=== PATIENT | male | born 1945 | race Caucasian/White ===

== ENCOUNTER → 2016-11-15 12:37 | Outpatient (CLI) | payer MEDICARE, OTHER ==
[2016-02-16 22:24] VITALS: BMI 23.0
[~2016-11-15 12:37] MED LIST: ADVIL200 MG PO; ARISTOCORT 0.5%15 GM TOPICAL; EZFE 200200 MG PO; MULTIPLE VITAMI1 TA1 PO; PROSCAR5 MG; SYNTHROID88 MCG PO; UROXATRAL10 MG PO; ZOVIRAX800 MG PO
== END | disposition home or self-care (01) ==
LOC: D.RAD 12:37
DX: R13.12 Dysphagia, oropharyngeal phase (principal)

== ENCOUNTER 2017-12-05 05:00 | Day surgery (SDC) | payer MEDICARE, OTHER ==
[2017-12-04 14:07] LABS: BASOPHILS 0.4 % (0-2); EOSINOPHILS 1.2 % (0-7); HEMATOCRIT 38.9 % (42.0-54.0); HEMOGLOBIN 13.1 g/dL (13.5-17.5); IMMATURE GRANULOCYTES 0.2 % (0-5); LYMPHOCYTES 15.3 % (15-50); MCH 31.5 pg (26.0-34.0); MCHC 33.7 g/dL (31.0-37.0); MCV 93.5 fL (80.0-100.0); MEAN PLATELET VOLUME 10.4 fL (7.4-10.4); NEUTROPHILS 73.9 % (40-80); PLATELET COUNT 180 10x3/uL (130-400); RBC 4.16 10x6/uL (4.20-6.10); RDW 12.8 % (11.5-14.5); WBC 8.2 10x3/uL (4.8-10.8)
[2017-12-04 14:21] LABS: INR 1.05 (0.85-1.17); PROTIME 13.3 SECONDS (11.6-15.0)
[2017-12-04 14:22] LABS: APTT 30.6 SECONDS (22.8-39.4)
[~2017-12-05] VITALS: Ht 177.8 cm; Wt 74.8 kg
--- NOTE | ~2017-12-05 | OP ---
PATIENT NAME: ANA ZALDIVAR JR MEDICAL RECORD: [id number] :47 LOCATION:D.OPS ADMISSION DATE: SURGEON: ARLETTE VILLELA DPM DATE OF OPERATION: 12/05/2017 PREOPERATIVE DIAGNOSES: 1. Hallux abductovalgus, right foot. 2. Instability, right first met cuneiform joint. 3. Plantar plate rupture, right second MPJ. 4. PIPJ hammertoe, right second digit. POSTOPERATIVE DIAGNOSES: 1. Hallux abductovalgus, right foot. 2. Instability, right first met cuneiform joint. 3. Plantar plate rupture, right second MPJ. 4. PIPJ hammertoe, right second digit. PROCEDURES NUMBER 1: 1. Edge bunionectomy. 2. First met cuneiform joint fusion. 3. Tu osteotomy, right second metatarsal. 4. Plantar plate repair, right second MPJ. 5. Right second PIPJ fusion. ANESTHESIA: Preoperative popliteal block per the anesthesia department. HEMOSTASIS: Right thigh tourniquet at 350 mmHg. PREOPERATIVE DETAILS: The patient was taken to the OR, placed on the operating table in supine position. This was followed by induction of general anesthesia and infiltration of local anesthetic. The right extremity was then prepped and draped in usual aseptic technique followed by exsanguination of extremity and inflation of tourniquet. PROCEDURE #1: Edge bunionectomy, right foot. A 15 blade was used to create an incision from the dorsal aspect of the medial cuneiform, distally to the base of the proximal phalanx of the hallux. The incision was deepened down through subcutaneous tissue being sure to avoid all vital structures. Dissection was carried down to the first MPJ where an inverted L capsulotomy was performed. The medial capsular flap was reflected and the head of first metatarsal was delivered. A sagittal saw was used to resect the medial eminence. Attention was directed to the first interspace where a lateral release was performed. PROCEDURE #2: First met cuneiform joint fusion, right foot. The incision as described in #1 was carried down to the periosteum. A periosteal incision was made, preserving the medial dorsal cutaneous nerve and retracted in the wound. The first met cuneiform joint was then delivered. A sagittal saw was used to resect the joint. Temporary fixation was used and a 5-hole plate with one screw crossing the fusion site was placed with excellent rigid internal fixation. C-arm was used to verify good alignment. The wound was flushed. The first MPJ as well as the periosteum was repaired with 2-0 Vicryl, the subcutaneous tissue with 4-0 Rapide, and the skin was closed with 4-0 Rapide in a subcuticular technique followed by Dermabond. PROCEDURE #3: Tu osteotomy, right second metatarsal. A 15-blade was used to OPERATIVE REPORT [id number] ANA ZALDIVAR JR create a curvilinear incision over dorsal aspect of the second metatarsal, distally over the top of the PIPJ of the second digit. The incision was deepened down through subcutaneous tissue to the extensor longus tendon, which was transected in a Z fashion. The dissection was carried proximal freeing the extensor longus tendon from the dorsal aspect of the second MPJ. A linear capsulotomy was performed through the second MPJ delivering the second metatarsal head and the base of the proximal phalanx. A sagittal saw was used to create a dorsal distal to plantar proximal cut through the metatarsal head. The capital fragment was translocated proximally and temporarily fixated with a 0.062 inch K-wire. A second K-wire was then placed in the proximal phalanx of the second digit followed by a wire retractor. The joint was then distracted. This was preceded by freeing the plantar structures with a McGlamry scoop elevator. Upon initial inspection, there was a tear in the medial plantar plate. At this time, the tear was completed with a 15 blade, a scorpion passer was used to pass FiberWire through the plantar plate, 2 small drill holes were made in the base of the proximal phalanx and the FiberWire was placed up and brought up through the small drill holes. At this time, the K-wires were removed. Two popoff screws were used to fixate the second metatarsal head in the proper position and with the toe held in plantar flexion, the suture was tied on the dorsal aspect of the proximal phalanx allowing excellent alignment of the second MPJ with the digit in slightly plantarflexed position at the MPJ. PROCEDURE #5: PIPJ fusion, right second digit. The incision as described above was carried distal just a little bit more past the PIPJ. The extensor longus tendon was freed from the dorsal aspect of the PIPJ and the head of the proximal phalanx was delivered as well as the base of middle phalanx. A sagittal saw was used to resect both. A drill hole was made in both followed by placement of a hammer graft bone graft into the proximal phalanx first and then the middle phalanx was then placed on top of the bone graft, noting excellent alignment as well as excellent fixation. The wound was flushed. The second MPJ capsule was repaired with 2-0 Vicryl. The extensor longus tendon was repaired with 4-0 Rapide and the skin was reapproximated with 4-0 Rapide. The skin was then closed with 4-0 Rapide in a subcuticular technique followed by Dermabond. Adaptic, 4 x 4 and Conform were used to dress the wound followed by application of modified Jay compression dressing. Tourniquet was deflated. POSTOPERATIVE DETAILS: The patient tolerated the procedure well and left the OR with vital signs stable, vascular status at preoperative levels. The patient was transported to recovery per anesthesia in stable condition. TRANSINT:[id number] Voice Confirmation ID: [id number] DOCUMENT ID: [id number] ARLETTE VILLELA DPM at 1016 CC: [id number] DICTATION DATE: 12/05/17915 ADMINISTRATIVE JUDGE: 12/05/17 1253 [facility] 12/05/17 [place] [id number]
[~2017-12-05 05:00] MED LIST changes: +PEPCID20 MG PO; -PROSCAR5 MG; +PROSCAR5 MG PO
[2017-12-05 06:09] VITALS: BP 148/81; Ht 177.8 cm; Wt 74.8 kg
== END 2017-12-05 11:10 | disposition home or self-care (01) ==
LOC: D.OPS 05:00 → D.PAN 07:00 → D.OPS 11:10
PROVIDERS: Anesthesiology
DX: M20.11 Hallux valgus (acquired), right foot (principal); M25.374 Other instability, right foot; S93.144A Subluxation of metatarsophalangeal joint of right lesser toe(s), initial encounter; X58.XXXA Exposure to other specified factors, initial encounter; M20.41 Other hammer toe(s) (acquired), right foot; Z01.812 Encounter for preprocedural laboratory examination

== ENCOUNTER → 2018-01-18 11:30 | Outpatient (CLI) | payer MEDICARE, OTHER ==
[2017-12-05 06:09] VITALS: BMI 238.1
== END | disposition home or self-care (01) ==
LOC: D.MRI 11:30
DX: R51 Headache (principal)

== ENCOUNTER 2019-03-18 05:15 | Day surgery (SDC) | payer MEDICARE, OTHER ==
[2019-03-17 15:26] LABS: APTT 29.3 SECONDS (22.8-39.4); INR 1.11 (0.85-1.17); PROTIME 13.8 SECONDS (11.6-15.0)
[2019-03-17 15:34] LABS: BASOPHILS 0.6 % (0-2); EOSINOPHILS 1.4 % (0-7); HEMATOCRIT 39.9 % (42.0-54.0); HEMOGLOBIN 13.8 g/dL (13.5-17.5); IMMATURE GRANULOCYTES 0.1 % (0-5); LYMPHOCYTES 20.1 % (15-50); MCH 31.7 pg (26.0-34.0); MCHC 34.6 g/dL (31.0-37.0); MCV 91.7 fL (80.0-100.0); MEAN PLATELET VOLUME 10.8 fL (7.4-10.4); MONOCYTES 10.4 % (2-11); NEUTROPHILS 67.4 % (40-80); PLATELET COUNT 189 10x3/uL (130-400); RBC 4.35 10x6/uL (4.20-6.10); RDW 13.3 % (11.5-14.5); WBC 6.9 10x3/uL (4.8-10.8)
[~2019-03-18] VITALS: Ht 177.8 cm; Wt 74.4 kg
[~2019-03-18 05:15] MED LIST changes: +SYNTHROID100 MCG PO; -SYNTHROID88 MCG PO
[2019-03-18 06:23] VITALS: BP 130/82; Ht 177.8 cm; Wt 74.4 kg
--- NOTE | 2019-03-18 08:36 | NUR ---
0840 DR. PERRY LINDQUIST
--- NOTE | 2019-03-18 08:49 | NUR ---
0848 [place] DIET SERVED.
--- NOTE | 2019-03-18 09:07 | OP ---
PATIENT NAME: ANA ZALDIVAR JR MEDICAL RECORD: [id number] :47 LOCATION:[facility] ADMISSION DATE: SURGEON: BRETT AMADOR MD DATE OF OPERATION: 03/18/2019 SURGEON: Brett Amador MD ANESTHESIA: TIVA by Samantha Gramajo CRNA. DIAGNOSES: Elevated PSA of 2.16, on finasteride. Bladder outlet obstruction. PROCEDURE: Cystoscopy, transrectal ultrasound, and prostate biopsy SPECIMEN: Prostate biopsy cores. FINDINGS: On cystoscopy, lateral lobe hyperplasia, no median lobe. Single ureteral orifices bilaterally without any bladder tumors. On transrectal ultrasound, 18 gram prostate. There is a hypoechoic stone in the right base of the prostate. ESTIMATED BLOOD LOSS: None. CLINICAL HISTORY: This is a 73-year-old male, who has obstructive BPH symptoms. He has been on Uroxatral and Proscar for 10 years. This was originally started by urologist in [place]. At that time, he was told that his prostate was 80 grams in size. Over the course of time, his PSA has steadily risen. It was 2 in November of 2017. In November of 2018, it was 2.8. It was repeated in January of 2019, it was 2.16. He comes today to have the prostate biopsy done to evaluate his bladder outlet obstruction. It should be noted that with finasteride treatment the PSA typically goes down to half of what it would be without the finasteride. Therefore, his PSA of 2.16 would be roughly 4.4 if he was not on finasteride. He is not allergic to any medication. He was given Ancef extension course counselor to the OR. DESCRIPTION OF PROCEDURE: The patient was given IV sedation. He was then placed into dorsal lithotomy position. He was prepped and draped. Lidocaine jelly was inserted into the urethra. Cystoscopy was performed using a 17-American scope with 30-degree lens. There are no penile urethral strictures. The lateral lobes of the prostate are obstructive. There is no median lobe. The other findings are as outlined above. The scope was used to empty the bladder and then the scope was removed entirely. We then introduced the transrectal ultrasound probe. Prostate size measurements were obtained. We obtained the prostate size of 18 grams only. The prostate is small. A hypoechoic area was seen in the right base. Sextant biopsies were obtained with at least 3 cores from each sextant. I did make an effort to hit the right hypoechoic zone in the biopsy. Once all the specimens were obtained, the procedure was terminated. The patient was awakened and brought back to the preoperative holding area. I will see him in followup next week to review the pathology results with him. TRANSINT:[id number] Voice Confirmation ID: [id number] DOCUMENT ID: [id number] OPERATIVE REPORT [id number] ANA ZALDIVAR JR, BRETT Jackson MD at 0907 CC: [id number] DICTATION DATE: 03/18/19826 HEDIS COORDINATOR: 03/18/19 [address] [id number] [place] [address]
== END 2019-03-18 09:15 | disposition home or self-care (01) ==
LOC: D.OPS 05:15 → D.PAN 07:30 → D.OPS 09:15
PROVIDERS: Anesthesiology; ATTEND Urology
DX: N32.0 Bladder-neck obstruction (principal); R97.20 Elevated prostate specific antigen [PSA]

== ENCOUNTER → 2019-04-30 09:32 | Outpatient (CLI) | payer MEDICARE, OTHER ==
[2019-03-18 06:23] VITALS: BMI 23.5
== END | disposition home or self-care (01) ==
LOC: D.MRI 09:32
PROVIDERS: ATTEND Family Medicine
DX: R51 Headache (principal)